=== PATIENT | female | born 1955 | race Caucasian/White ===

== ENCOUNTER 2018-02-06 17:59 | Emergency (ER) | payer MEDICARE, OTHER ==
[2018-02-06 20:13] LABS: URINE BLOOD (Dip) POC Negative (NEGATIVE); URINE KETONES (Dip) POC Negative (NEGATIVE); URINE LEUKOCYTE EST (Dip) POC Negative (NEGATIVE); URINE NITRITE (Dip) POC Negative (NEGATIVE); URINE TOTAL PROTEIN POC Negative (NEGATIVE)
[2018-02-06 20:13] LABS: URINE PH (Dip) POC 5.5 (5.0-8.5)
== END 2018-02-06 21:04 | disposition home or self-care (01) ==
LOC: FTE 17:59
DX: G47.00 Insomnia, unspecified (principal); I10 Essential (primary) hypertension; Z79.84 Long term (current) use of oral hypoglycemic drugs
CPT/HCPCS: 81003; 99283

== ENCOUNTER 2018-08-18 06:56 | Emergency (ER) | payer MEDICARE, OTHER | END 2018-08-18 07:54 | disposition home or self-care (01) | LOC: FTE 06:56 | DX: G47.00 Insomnia, unspecified (principal); J06.9 Acute upper respiratory infection, unspecified; I10 Essential (primary) hypertension; E11.9 Type 2 diabetes mellitus without complications; Z79.84 Long term (current) use of oral hypoglycemic drugs | CPT/HCPCS: 99283 ==

== ENCOUNTER 2018-09-17 15:52 | Emergency (ER) | payer MEDICARE, OTHER | END 2018-09-17 18:44 | disposition home or self-care (01) | LOC: FTE 15:52 | DX: L03.115 Cellulitis of right lower limb (principal); I10 Essential (primary) hypertension | CPT/HCPCS: 99283 ==

== ENCOUNTER 2019-04-13 07:52 | Emergency (ER) | payer MEDICARE, OTHER | END 2019-04-13 08:41 | disposition home or self-care (01) | LOC: FTE 08:41 | DX: G47.00 Insomnia, unspecified (principal); I10 Essential (primary) hypertension; E11.9 Type 2 diabetes mellitus without complications; Z79.84 Long term (current) use of oral hypoglycemic drugs | CPT/HCPCS: 99281 ==